=== PATIENT | female | born 1985 | race Caucasian/White ===

== ENCOUNTER 2018-10-10 18:43 | Inpatient (IN) | payer MEDICAID, OTHER ==
[~2018-10-10] VITALS: Ht 162.6 cm; Wt 59.9 kg
--- NOTE | 2018-10-10 19:21 | NUR ---
CALLED FROM WAITING ROOM; NOT IN THE WAITING ROOM
[2018-10-10] MEDS ORDERED: IBUPROFEN 600 MG TABLET PO ONE ×2 (19:46→20:00)
[2018-10-10] MEDS ORDERED: LORAZEPAM 1 MG TABLET ONE (20:28)
[2018-10-10] MEDS ORDERED: IV NS 0.9% 1,000 ML BAG IV ONE (20:30)
[2018-10-10] MEDS ORDERED: LORAZEPAM 1 MG TABLET PO ONE (20:30)
--- NOTE | 2018-10-10 20:33 | NUR ---
I&D IN PROGRESS AT THE BEDSIDE. PT IN PAIN, CRYING. MEDICATION GIVEN ORDERED.
--- NOTE | 2018-10-10 20:43 | NUR ---
CALLED FOR MS BED.
[2018-10-10 20:45] LABS: BASOPHILS # (AUTO) 0.1 /CMM (0.0-0.2); BASOPHILS % (AUTO) 0.7 % (0.0-2.0); EOSINOPHILS % (AUTO) 5.3 % (0.0-6.0); HEMATOCRIT 39 % (33-45); LYMPHOCYTES # (AUTO) 2.8 /CMM (0.8-4.8); LYMPHOCYTES % (AUTO) 31.8 % (20.0-44.0); MEAN CORPUSCULAR HGB CONC 34 g/dl (31.0-36.0); MEAN CORPUSCULAR VOLUME 92 fL (82-100); MONOCYTES # (AUTO) 0.8 /CMM (0.1-1.30); MONOCYTES % (AUTO) 9.6 % (2.0-12.0); NEUTROPHILS # (AUTO) 4.6 /CMM (1.8-8.9); NEUTROPHILS % (AUTO) 52.6 % (43.0-81.0); PLATELET COUNT (AUTO) 355 /CMM (150-450); RED BLOOD CELL COUNT(AUTO) 4.21 MIL/uL (4.0-5.2); WHITE BLOOD COUNT (AUTO) 8.7 K/uL (4.3-11.0)
[2018-10-10] MEDS ORDERED: LINEZOLID RTU BAG 300 ML IV ONE (20:58)
[2018-10-10] MEDS ORDERED: HYDROMORPHONE 1 MG/1 ML DISP.SYRIN ONE (20:58)
[2018-10-10] MEDS ORDERED: HYDROMORPHONE INJ 0.5 MG/0.5 ML SYRINGE IV ONE (21:00)
[2018-10-10 21:01] LABS: CALCIUM, SERUM 9.3 mg/dL (8.5-10.1); CREATININE 0.7 mg/dL (0.6-1.3); POTASSIUM 4.1 mmol/L (3.5-5.1)
[2018-10-10 21:06] LABS: ALBUMIN 3.4 g/dL (3.4-5.0); BILIRUBIN,TOTAL 0.1 mg/dL (0.2-1.0); TOTAL PROTEIN, SERUM 7.3 g/dL (6.4-8.2)
--- NOTE | 2018-10-10 21:19 | NUR ---
PT IS UNABLE TO GIVE A URINE SAMPLE AT THIS TIME.
--- NOTE | 2018-10-10 21:24 | NUR ---
BLOOD CULTURES DRAWN BY LAB.
[2018-10-10] MEDS: LINEZOLID RTU BAG 600 MG in PREMIX 1 EA IV SCH (21:26)
--- NOTE | 2018-10-10 21:26 | NUR ---
ZYVOX ANTIBIOTIC STARTED.
--- NOTE | 2018-10-10 21:29 | NUR ---
PT IS CAPITATED TO SUSANNAH PHAM, INSURANCE REP. DR RENTERIA, [phone]. [phone] CALL BACK ANKIT, IF PT IS NOT AGREEABLE. FAX SUSANNAH STALEY. [facility] [employer] [facility] [employer]. FAX: [phone]. AUTH [id number]. [place]SE[place] OR JUAN.
--- NOTE | 2018-10-10 21:41 | NUR ---
SPOKE TO ANKIT, [facility] INSURANCE RE: DR RENTERIA REFUSING ADMISSION OF PT. ANKIT SAID TO USE THE AMBULANCE AUTH TO ADMIT AND SHE WILL CHANGE THE AMBULANCE AUTH INTO THE [facility] ADMITTING AUTHORIZATION.
--- NOTE | 2018-10-10 21:43 | NUR ---
ADMITTING AUTH IS: [id number].
--- NOTE | 2018-10-10 21:52 | NUR ---
CALLED [facility] AFTER HOURS: [phone] ITS MARILYN.
--- NOTE | 2018-10-10 21:55 | NUR ---
2ND I &D ATTEMPT DONE UNSUCCESSFUL.
--- NOTE | 2018-10-10 22:45 | NUR ---
GOT BED 326-2 Addendum: 10/10/18 at 2246 by [facility] GOT BED 320-2
--- NOTE | 2018-10-10 22:50 | NUR ---
[facility]
--- NOTE | 2018-10-10 22:56 | NUR ---
CALLING REPORT TO MS NURSE.
[2018-10-10] MEDS ORDERED: ZOLPIDEM TARTRATE 5 MG TABLET PO PRN (23:00)
[2018-10-10] MEDS ORDERED: MAGNESIUM HYDROXIDE 30 ML UDC PO PRN (23:00)
[2018-10-10] MEDS ORDERED: MAG HYDROX/AL HYDROX/SIMETH 30 ML UDC PO PRN (23:00)
[2018-10-10] MEDS ORDERED: ACETAMINOPHEN 325 MG TABLET PO PRN (23:00)
[2018-10-10 23:08] VITALS: BP 100/79
--- NOTE | 2018-10-10 23:10 | NUR ---
MS RN OPENING NOTES: RECEIVED PT ON ROOM AIR AND IS TOLERATING WELL. PT HAS IV ON R HAND AND IS BEING INFUSED WITH ZYVOX AT THIS TIME. PT A/OX4. NO SOB NOTED. PT COMPLAINING OF 5/10 PAIN ON HER L HAND. NOTED DRESSING ON L AC /ARM AREA. BED KEPT IN LOW, LOCKED POSITION, AND SIDE RAILS X 2UP. WILL CONTINUE TO MONITOR PT.
[2018-10-10 23:15] VITALS: BP 100/79
[2018-10-11] MEDS ORDERED: PIPERACILLIN /TAZOBACTAM 3.375 G in IV D5W 50 ML IV SCH ×2
--- NOTE | 2018-10-11 | NUR ---
MS RN NOTES: LISA SAENZ AT BEDSIDE.
[2018-10-11] MEDS: IV NS 0.9% 1,000 ML IV PRN (00:07)
[2018-10-11] MEDS: PIPERACILLIN /TAZOBACTAM 3.375 G in IV D5W 50 ML IV SCH ×2 (00:39→05:10)
--- NOTE | 2018-10-11 00:45 | NUR ---
MS RN NOTES: PER [employer] PROJECT MANAGER CRISTINA NEGRETE TO ORDER TEST.
[2018-10-11 01:00] LABS: APPEARANCE,URINE CLEAR (CLEAR); BILIRUBIN,URINE NEGATIVE (NEGATIVE); BLOOD, URINE 1+ Ery/uL (NEGATIVE); COLOR,URINE YELLOW (YELLOW); KETONES,URINE NEGATIVE (NEGATIVE); LEUKOCYTE ESTERASE ,URINE TRACE (NEGATIVE); NITRITE, URINE NEGATIVE (NEGATIVE); PROTEIN,URINE TRACE mg/dl (NEGATIVE); UGLUCOSE NEGATIVE (NEGATIVE); UROBILINOGEN,URINE 0.2 EU/dL (0.2)
[2018-10-11 01:04] LABS: BACTERIA,URINE Few /HPF (None Seen); RBC,URINE 21-50 /HPF (0-2); WBC,URINE 21-50 /HPF (0-3)
[2018-10-11 01:05] LABS: CALCIUM OXALATE CRYSTALS,UR Few /HPF (None Seen); SQUAMOUS EPITHELIAL CELL,UR Few /HPF (None Seen)
[2018-10-11] MEDS ORDERED: PIPERACILLIN /TAZOBACTAM 3.375 G VIAL IV ONE ×2 (01:14→05:04)
[2018-10-11] MEDS: HYDROMORPHONE 1 MG/1 ML DISP.SYRIN IV PRN ×4 (04:23→20:25)
--- NOTE | 2018-10-11 04:30 | NUR ---
MS RN NOTES: PT COMPLAINING OF L ARM PAIN 03/19. PT WAS ADMINISTERED DILAUDID 1MG VIA IV. WILL CONTINUE TO MONITOR.
[2018-10-11 06:16] LABS: BASOPHILS % (AUTO) 0.5 % (0.0-2.0); EOSINOPHILS % (AUTO) 5.9 % (0.0-6.0); HEMATOCRIT 35 % (33-45); HEMOGLOBIN 11.7 g/dL (11.5-14.8); LYMPHOCYTES # (AUTO) 2.6 /CMM (0.8-4.8); LYMPHOCYTES % (AUTO) 32.4 % (20.0-44.0); MEAN CORPUSCULAR HGB CONC 34 g/dl (31.0-36.0); MEAN CORPUSCULAR VOLUME 92 fL (82-100); MONOCYTES # (AUTO) 0.8 /CMM (0.1-1.30); MONOCYTES % (AUTO) 9.5 % (2.0-12.0); NEUTROPHILS # (AUTO) 4.1 /CMM (1.8-8.9); NEUTROPHILS % (AUTO) 51.7 % (43.0-81.0); PLATELET COUNT (AUTO) 304 /CMM (150-450); RED BLOOD CELL COUNT(AUTO) 3.76 MIL/uL (4.0-5.2)
[2018-10-11 06:40] LABS: CALCIUM, SERUM 8.4 mg/dL (8.5-10.1); CREATININE 0.8 mg/dL (0.6-1.3); MAGNESIUM 1.6 mg/dL (1.8-2.4); PHOSPHORUS 4.5 mg/dL (2.5-4.9); POTASSIUM 3.8 mmol/L (3.5-5.1)
--- NOTE | 2018-10-11 07:07 | NUR ---
MS RN CLOSING NOTES: ALL NEEDS WERE ATTENDED AND ANTICIPATED FOR. PT KEPT CLEAN, DRY, AND COMFORTABLE. PT HAS IV AND IS BEING INFUSED WITH IV NS AT 75ML/HR. DRESSING REMAINS ON L AC AND IN PLACE. BED KEPT IN LOW, LOCKED POSITION, AND SIDE RAILS X 2UP. WILL ENDORSE TO AM NURSE FOR JAZMINE.
[2018-10-11 08:00] VITALS: BP 122/63
--- NOTE | 2018-10-11 08:00 | NUR ---
rn notes Received patient in the bed a/o x4. Patient had no acute respiratory distress, v/s stable, patient has a abscess wound on left ac area, dressing changed. Infusing ns at 75 ml/hr in right wrist. scheduled medication administered. patient using bathroom, safety precaution maintained all the time.
[2018-10-11] MEDS: PANTOPRAZOLE 40 MG TABLET.DR PO SCH (09:16)
[2018-10-11] MEDS: LINEZOLID RTU BAG 600 MG in PREMIX 1 EA IV SCH ×2 (09:17→22:32)
--- NOTE | 2018-10-11 09:27 | NUR ---
rN NOTES ADMINISTERED DILAUDID 1 MG/ML IV PUSH FOR PAIN 01/17 PER PATIENT REQUEST, V/S TAKEN BP-122/63, P-81, CONTINUED MONITORING.
[2018-10-11] MEDS: LORAZEPAM 1 MG TABLET PO PRN (10:42)
--- NOTE | 2018-10-11 10:42 | NUR ---
RN NOTES ADMINISTERED ATIVAN 1 MG PO PRN FOR ANXIETY PER PATIENT REQUEST, BP - 107/68,P-81, CONTINUED MONITORING.
--- NOTE | 2018-10-11 11:06 | NUR ---
RN NOTES ADMINISTERED TYLENOL 650 MG PO PRN FOR LEFT ARM PAIN 5/10, CONTINUED MONITORING.
--- NOTE | 2018-10-11 11:32 | NUR ---
Social service consult requested by LISA Kumar for homelessness. Pt. is a 33 year old female who was admitted to [facility] for cellulitis. ALEK met with pt. bedside. Pt. is alert and oriented x 4. Pt. had her eyes closed throughout the entire assessment. Pt. states she is homeless and has been for the past four years. Pt. resides in the streets. Pt. is an heroin user and last used heroin two days ago. Pt. has been using heroin on and off for years. Pt. receives food stamps per month. Pt. denies alcohol use. Pt. smokes 1/2 pack of cigarettes per day. Pt. states she has Depression and Anxiety but is not taking any medications. Pt. denies suicidal and homicidal ideations and visual/auditory hallucinations at this time. Pt. last attended a drug treatment program four years ago in [place]. ALEK inquired with pt. if she would like referrals to drug treatment programs and [facility] program. Pt. accepted to take referrals. SW to give pt. referrals prior to discharge.
[2018-10-11] MEDS: PIPERACILLIN /TAZOBACTAM 3.375 G in IV D5W 100 ML IV SCH ×2 (11:39→20:13)
--- NOTE | 2018-10-11 12:10 | NUR ---
Antione elise spoke with dry pan charger Melissa in regards to CT elbow W/O. She will get a hold of Roberto ROGERS to call Radiology to confirm if with contrast is needed to R/O abscess.
[2018-10-11] MEDS: Magnesium 1GM/D5W 100ML PREMIX 100 ML IV SCH ×2 (12:51→14:06)
--- NOTE | 2018-10-11 15:26 | NUR ---
RN notes Administered Dilaudid 1 mg/ml iv push for left arm pain 02/16 per patient request, v/s taken bp 124/71, p-71, continued monitoring.
[2018-10-11 16:00] VITALS: BP 114/69
--- NOTE | 2018-10-11 18:30 | NUR ---
RN NOTES STAT X-RAY ON LEFT ARM, CT WITH CONTRAST DONE, SCHEDULED MEDICATION ADMINISTERED. MEDICATION WERE ADMINISTERED FOR PAIN EFFECTIVE. PATIENT GOING TO [facility]. INFUSING ZOSYN 25 ML/HR INTAKE. PATIENT AMBULATORY, V/S STABLE. CALL LIGHT WITHIN TO REACH. SAFETY PRECAUTION MAINTAINED ALL THE TIME.
[2018-10-11] MEDS ORDERED: CT SWABBABLE VALVE TRANS SET 1 EA INFUS.SET MC ONE (19:02)
[2018-10-11] MEDS ORDERED: IOHEXOL-300 100 ML VIAL IV ONE (19:02)
[2018-10-11] MEDS ORDERED: IV NS 0.9% 250 ML IV ONE (19:02)
--- NOTE | 2018-10-11 19:53 | NUR ---
MS/RN OPENING NOTES PT RECEIVED RESTING COMFORTABLY IN BED. A/OX3. RESPONSIVE TO NAME. ON ROOM AIR, BREATHING EVEN AND UNLABORED. NO C/O PAIN OR SOB, IN NO ACUTE DISTRESS AT THIS TIME. WILLIAM DRESSING C/D/I. IV TO LEFT WRIST PATENT AND INTACT RUNNING IVF ORDERED. BED IN LOW/LOCKED POSITION WITH CALL LIGHT IN REACH. BILATERAL UPPER SIDE RAILS IN PLACE WITH HOB ELEVATED. WILL CONTINUE TO MONITOR
[2018-10-11 20:00] VITALS: BP 125/68
[2018-10-12] MEDS: HYDROMORPHONE 1 MG/1 ML DISP.SYRIN IV PRN ×6 (00:59→23:08)
[2018-10-12] MEDS: PIPERACILLIN /TAZOBACTAM 3.375 G in IV D5W 100 ML IV SCH ×3 (03:12→18:00)
[2018-10-12 07:01] LABS: BASOPHILS % (AUTO) 0.5 % (0.0-2.0); EOSINOPHILS % (AUTO) 3.1 % (0.0-6.0); HEMATOCRIT 38 % (33-45); HEMOGLOBIN 12.7 g/dL (11.5-14.8); LYMPHOCYTES # (AUTO) 2.2 /CMM (0.8-4.8); LYMPHOCYTES % (AUTO) 24.4 % (20.0-44.0); MEAN CORPUSCULAR HGB CONC 33 g/dl (31.0-36.0); MEAN CORPUSCULAR VOLUME 93 fL (82-100); MONOCYTES # (AUTO) 0.7 /CMM (0.1-1.30); MONOCYTES % (AUTO) 8.2 % (2.0-12.0); NEUTROPHILS # (AUTO) 5.7 /CMM (1.8-8.9); NEUTROPHILS % (AUTO) 63.8 % (43.0-81.0); PLATELET COUNT (AUTO) 330 /CMM (150-450); RED BLOOD CELL COUNT(AUTO) 4.13 MIL/uL (4.0-5.2)
[2018-10-12 07:15] LABS: CALCIUM, SERUM 8.8 mg/dL (8.5-10.1); CREATININE 0.8 mg/dL (0.6-1.3); PHOSPHORUS 3.1 mg/dL (2.5-4.9); POTASSIUM 3.9 mmol/L (3.5-5.1)
--- NOTE | 2018-10-12 07:29 | NUR ---
MS/RN CLOSING NOTES PT RECEIVED RESTING COMFORTABLY IN BED. A/OX3. ON ROOM AIR, BREATHING EVEN AND UNLABORED. DENIES SOB AND PAIN AT THIS TIME. IV TO RIGHT WRIST PATENT AND INTACT RUNNING IVF ORDERED. NO SIGNIFICANT CHANGES OVERNIGHT. ALL NEEDS MET. BED IN LOW/LOCKED POSITION WITH CALL LIGHT IN REACH, HOB ELEVATED. BILATERAL UPPER SIDE RAILS IN PLACE. ENDORSED TO DAY SHIFT RN JAZMINE.
--- NOTE | 2018-10-12 07:39 | NUR ---
RN NOTES PATIENT ASLEEP BUT EASILY AWAKEN. IVF INFUSING AND TOLERATING WELL, LEFT ARM KEPT ELEVATED. NEEDS ATTENDED, CALL LIGHT WITHIN REACH, WILL CONTINUE TO MONITOR.
[2018-10-12 08:00] VITALS: BP 126/68
[2018-10-12] MEDS: LINEZOLID RTU BAG 600 MG in PREMIX 1 EA IV SCH (08:34)
[2018-10-12] MEDS: PANTOPRAZOLE 40 MG TABLET.DR PO SCH (08:34)
[2018-10-12] MEDS: LORAZEPAM 1 MG TABLET PO PRN ×2 (08:34→19:44)
--- NOTE | 2018-10-12 10:00 | NUR ---
RN NOTES PATIENT SEEN BY RACHEL ROGERS. LEFT ARM IMPROVED PER RACHEL.
--- NOTE | 2018-10-12 15:30 | NUR ---
RN NOTES PATIENT SIGNED SMOKING CONSENT. SMOKING CESSATION EDUCATION PROVIDED, PATIENT VERBALIZED UNDERSTANDING, BUT STILL WANTS TO SMOKE CIGARETTE. PATIENT ACCOMPANIED BY [employer] OPERATIONS MANAGER.
[2018-10-12 16:00] VITALS: BP 112/69
[2018-10-12] MEDS: ONDANSETRON HCL/PF 4 MG/2 ML VIAL IVP PRN (16:43)
--- NOTE | 2018-10-12 18:14 | NUR ---
RN NOTES PATIENT IN NAD, NO SOB NOTED, DENIES PAIN AT THIS TIME, STILL NOTED WITH LEFT ARM REDNESS AND SWELLING, BUT IMPROVED, KEPT ELEVATED, IV ANTIBIOTIC INFUSING AND TOLERATING WELL. NEEDS ATTENDED AND MET, CALL LIGHT WITHIN REACH, WILL ENDORSE TO RING SEWER FOR JAZMINE.
--- NOTE | 2018-10-12 19:05 | NUR ---
MS RN OPENING NOTES Received patient in bed, alert, oriented x 4. Breathing even and unlabored. Not in any distress. Peripheral IV on R wrist infusing at 75mL/hr. Wound on LAC noted- redness noted but no drainage. Call mendieta within easy reach. Bed in low, locked position. Will continue to monitor accordingly
[2018-10-12 20:00] VITALS: BP 103/67
[2018-10-12 20:04] VITALS: BP 103/67
[2018-10-12] MEDS: LINEZOLID 600 MG TABLET PO SCH (20:46)
[2018-10-12] MEDS: IV NS 0.9% 1,000 ML IV PRN (22:58)
[2018-10-12 23:08] VITALS: BP 129/81
--- NOTE | 2018-10-12 23:08 | NUR ---
RN NOTES Patient c/o pain on left arm, 03/19. V/S taken: BP- 129/81, HR- 68. Dilaudid 1mg IV given as ordered. Will continue to monitor
[2018-10-13] MEDS: PIPERACILLIN /TAZOBACTAM 3.375 G in IV D5W 100 ML IV SCH (02:26)
[2018-10-13] MEDS: HYDROMORPHONE 1 MG/1 ML DISP.SYRIN IV PRN ×2 (03:16→08:18)
--- NOTE | 2018-10-13 03:16 | NUR ---
RN NOTES Patient c/o pain on left arm, 02/16. V/S taken: BP- 116/72, HR- 67. Dilaudid 1mg IV given as ordered. Will continue to monitor
--- NOTE | 2018-10-13 06:37 | NUR ---
MS RN CLOSING NOTES PATIENT STILL SLEEPING IN BED, EASILY AROUSABLE. NOT IN ANY DISTRESS. NO COMPLAINTS OF THIS TIME. NO ACUTE CHANGES OVERNIGHT. PERIPHERAL IV ON LEFT WRIST INFUSING AT 75ML/HR. ALL NEEDS ATTENDED TO. ALL DUE MEDS GIVEN ORDERED. WILL ENDORSE JAZMINE TO ONCOMING RN
[2018-10-13 07:04] LABS: BASOPHILS # (AUTO) 0.1 /CMM (0.0-0.2); BASOPHILS % (AUTO) 0.8 % (0.0-2.0); EOSINOPHILS % (AUTO) 3.7 % (0.0-6.0); HEMATOCRIT 37 % (33-45); HEMOGLOBIN 12.4 g/dL (11.5-14.8); LYMPHOCYTES # (AUTO) 2.7 /CMM (0.8-4.8); MEAN CORPUSCULAR HGB CONC 34 g/dl (31.0-36.0); MEAN CORPUSCULAR VOLUME 93 fL (82-100); MONOCYTES # (AUTO) 0.6 /CMM (0.1-1.30); MONOCYTES % (AUTO) 8.1 % (2.0-12.0); NEUTROPHILS # (AUTO) 3.5 /CMM (1.8-8.9); NEUTROPHILS % (AUTO) 49.4 % (43.0-81.0); PLATELET COUNT (AUTO) 322 /CMM (150-450); RED BLOOD CELL COUNT(AUTO) 3.99 MIL/uL (4.0-5.2)
[2018-10-13 07:20] LABS: CALCIUM, SERUM 8.9 mg/dL (8.5-10.1); CREATININE 0.8 mg/dL (0.6-1.3); PHOSPHORUS 3.3 mg/dL (2.5-4.9); POTASSIUM 4.2 mmol/L (3.5-5.1)
[2018-10-13 07:57] VITALS: BP 117/68
[2018-10-13 08:00] VITALS: BP 117/68
[2018-10-13] MEDS: ONDANSETRON HCL/PF 4 MG/2 ML VIAL IVP PRN (08:15)
[2018-10-13] MEDS: PANTOPRAZOLE 40 MG TABLET.DR PO SCH (08:15)
--- NOTE | 2018-10-13 08:15 | NUR ---
RN NOTES Received Patient in bed, A/O x 4. No acute respiratory distress noted. IV on [R] WRIST. Site clean and intact. IV fluids NS infusing at 75ml/hr. Resident ambulatory and continent and able to use restroom by self. Patient complains of pain on [L] ARM 01/17. VS taken BP-117/68, HR-59, Temp 98.4F, on RA O2 Saturation-100%. Administered Dilaudid 1mg/ml IV at 8:15AM per Patient request. Administered Zofran 4mg/2ml at 8:15AM d/t complaints of nausea per Patient request. All due medications administered. Patient stable. Call light within reach. Will continue to monitor.
[2018-10-13] MEDS: LINEZOLID 600 MG TABLET PO SCH (08:24)
--- NOTE | 2018-10-13 10:44 | NUR ---
COIL STRAPPER NOTES Patient left AMA. Explained risks and consequences of AMA. Patient agreed to leave AMA. AMA papers signed. Patient stable and ambulatory. All belongings with Patient. Patient stable to leave hospital.
== END 2018-10-13 10:40 | disposition left against medical advice (07) | DRG 383 ==
LOC: ER 18:52 → MED 22:52
PROVIDERS: ADMIT Nurse Practitioner Acute Care; ATTEND Student in an Organized Health Care Education/Training Program
DX: L03.114 Cellulitis of left upper limb (principal); E83.42 Hypomagnesemia; F11.90 Opioid use, unspecified, uncomplicated; F15.90 Other stimulant use, unspecified, uncomplicated; L02.414 Cutaneous abscess of left upper limb; F17.200 Nicotine dependence, unspecified, uncomplicated; Z87.442 Personal history of urinary calculi; Z82.49 Family history of ischemic heart disease and other diseases of the circulatory system; Z86.19 Personal history of other infectious and parasitic diseases; Z88.1 Allergy status to other antibiotic agents; Z88.5 Allergy status to narcotic agent; Z88.8 Allergy status to other drugs, medicaments and biological substances; Z59.0 Homelessness; Z96.0 Presence of urogenital implants; F31.9 Bipolar disorder, unspecified
CPT/HCPCS: 36415; 73080-TC; 73201-TC; 80048-TC; 80053-TC; 81000-TC; 83605-TC; 83735-TC; 84100-TC; 84703-TC; 85025-TC; 85652-TC; 86140-TC; 87040-TC; 87081-TC; 87086-TC; 87806; A4216; A6402; A6403; A6407; G0378; J1170; J2020; J2405; J2543; J3475; J7030; J7050; J7060; Q9967